=== PATIENT | male | born 1980 | race Caucasian/White ===

== ENCOUNTER 2017-01-11 12:30 | Emergency (ER) | payer OTHER ==
[2017-01-11 13:21] LABS: BASO % 0.3 % (0-2); EOS % 0.1 % (0-7); HCT-HEMATOCRIT 47.2 % (36.0-53.5); HGB-HEMOGLOBIN 16.8 gm/dl (13.5-17.0); IMMATURE GRANULOCYTES PERCENT 0.6 % (0-0.3); LYMPH % 11.1 % (20-45); LYMPH ABSOLUTE COUNT 1.7 tho/cmm (0.8-4.5); MCH (MEAN CORPUSCULAR HGB) 31.5 pg (28.0-32.0); MCHC MEAN CORPUSCULAR HGB CONC 35.6 % (32.0-36.0); MCV (MEAN CELL VOLUME) 88.4 fl (82.0-96.0); MEAN PLATELET VOLUME 10.2 cmc (9.4-12.4); MONO % 4.6 % (0-12); MONOCYTE ABSOLUTE COUNT 0.7 tho/cmm (0.0-1.2); NEUTROPHIL ABSOLUTE COUNT 12.9 tho/cmm (1.6-8.0); NEUTROPHIL-AUTOMATED 12.9 tho/cmm (1.6-8.0); NEUTROPHILS % 83.3 % (40-80); PLATELET COUNT 286 tho/cmm (150-450); RED BLOOD COUNT 5.34 mil/cmm (4.40-5.70); RED CELL DISTRIBUTION WIDTH 12.3 % (12.4-16.4); WHITE BLOOD COUNT 15.5 tho/cmm (4.0-10.0)
[2017-01-11 13:31] LABS: ALB/GLOB RATIO 1.4 (0.8-2.0); ALBUMIN 4.8 g/dl (3.5-5.0); ALKALINE PHOSPHATASE 82 U/L (33-138); ALT/SGPT 42 U/L (12-78); ANION GAP 19 mmol/L (0-20); AST/SGOT 28 U/L (10-40); BILIRUBIN,TOTAL 0.5 mg/dl (0.0-1.5); BLOOD UREA NITROGEN 16 mg/dl (6-24); CARBON DIOXIDE-VENOUS 17 mmol/L (22-32); CHLORIDE 110 mmol/l (96-110); CREATININE 1.25 mg/dl (0.60-1.30); GLUCOSE 113 mg/dL (70-110); SODIUM 141 mmol/L (135-145); eGFR VALUE FOR BLACK 85 mL/Min
[2017-01-11 13:32] LABS: POTASSIUM 4.7 mmol/L (3.7-5.1)
[2017-01-11 15:14] LABS: URINE BILIRUBIN NEGATIVE (NEG); URINE BLOOD LARGE (NEG); URINE GLUCOSE (UA) NEGATIVE (NEG); URINE KETONE MODERATE (NEG); URINE LEUKOCYTE ESTERASE POSITIVE (NEG); URINE NITRITE NEGATIVE (NEG); URINE PROTEIN MODERATE (NEG)
[2017-01-11 15:15] LABS: URINE APPEARANCE HAZY; URINE COLOR YELLOW
[2017-01-11 15:32] LABS: URINE MUCUS 2+; URINE RBC 80-100 /[HPF] (0-5)
[2017-01-11 15:33] LABS: URINE EPITHELIAL CELLS 0-2 /[HPF] (0-10)
[2017-01-11] MEDS ORDERED: PERCOCET 5-3251 EACH PO (15:51)
[2017-01-11] MEDS ORDERED: FLOMAX0.4 M1 PO (15:51)
[2017-01-12] MEDS ORDERED: PERCOCET 5-3251 EACH PO (16:58)
== END 2017-01-11 16:20 ==
LOC: EDMED 12:30
PROVIDERS: Nurse Practitioner Family
DX: N13.2 Hydronephrosis with renal and ureteral calculous obstruction (principal); Z87.442 Personal history of urinary calculi
CPT/HCPCS: J1170; J1885; J2405; J7030

== ENCOUNTER 2017-01-13 11:09 | Day surgery (SDC) | payer OTHER ==
[~2017-01-13 11:09] MED LIST: FLOMAX0.4 M1 PO; PERCOCET 5-3251 EACH PO
== END 2017-01-13 16:00 ==
LOC: SHSB 11:09 → ORW 12:50 → PACU 14:03 → SHSB 14:15
PROC: 0TF3XZZ Fragmentation in Right Kidney Pelvis, External Approach (ICD-10-PCS; principal; 2017-01-13)
PROC: 0TF6XZZ Fragmentation in Right Ureter, External Approach (ICD-10-PCS; 2017-01-13)
DX: N20.1 Calculus of ureter (principal); F17.210 Nicotine dependence, cigarettes, uncomplicated
CPT/HCPCS: J0690; J2270